=== PATIENT | male | born 1955 | race Caucasian/White ===

== ENCOUNTER 2016-12-21 07:20 | Day surgery (SDC) | payer BC ==
[~2016-12-21] VITALS: Ht 167.6 cm; Wt 86.6 kg
[~2016-12-21 07:20] MED LIST: ACYCLOVIR800 MG OR; ALEVE220 M1 PO; ALTOPREV40 MG OR; AMLODIPINE5 MG PO; ARAVA20 MG PO; ARTHRITIS MED PO; AUGMENTIN875 MG OR; AUGMENTIN875TAB PO; CALCIUM 601 PO; CALCIUM600 M3 PO; CETIRIZINE10 MG PO; FISH OIL1000 MG PO; FLEXERIL OR; KEFLEX500 M1 PO; LISINOP/HCTZ1 TAB PO; LORTAB 5 OR; LORTAB5 PO; MELOXICAM7.5 MG PO; NIACIN50 MG PO; NO MEDS; OMEGA 3550 MG PO; PRAVASTATIN SOD20 MG PO; PREDNISONE5 MG PO; PRILOSEC20 MG/CAP PO; PROSTATE SR PO; RHEUMATREX2.5 MG OR; STERAPRED5 MG OR; SULFASALAZIN500 M1 PO; VITAMIN B CO OR; VITAMIN7 PO
[2016-12-21 10:00] VITALS: BP 133/84
== END 2016-12-21 10:08 | disposition home or self-care (01) | DRG 382 ==
LOC: ENDO 07:20 → ORM 17:45
PROVIDERS: ATTEND Internal Medicine Gastroenterology
PROC: 0DB48ZX Excision of Esophagogastric Junction, Via Natural or Artificial Opening Endoscopic, Diagnostic (ICD-10-PCS; principal; 2016-12-21)
DX: K22.70 Barrett's esophagus without dysplasia (principal); I10 Essential (primary) hypertension; K21.9 Gastro-esophageal reflux disease without esophagitis; K29.70 Gastritis, unspecified, without bleeding; K44.9 Diaphragmatic hernia without obstruction or gangrene; K57.30 Diverticulosis of large intestine without perforation or abscess without bleeding; K64.8 Other hemorrhoids; M06.9 Rheumatoid arthritis, unspecified; E78.00 Pure hypercholesterolemia, unspecified; N40.0 Benign prostatic hyperplasia without lower urinary tract symptoms; Z87.11 Personal history of peptic ulcer disease

== ENCOUNTER 2017-02-07 10:21 | Inpatient (IN) | payer BC ==
[~2017-02-07] VITALS: Ht 167.6 cm; Wt 88.5 kg
[2017-02-07] MEDS ORDERED: HYDROCO/APAP1 T11 PO (10:51)
[2017-02-08] VITALS (7 sets, daily range): BP systolic 130–149; BP diastolic 68–89
[2017-02-09 03:48] VITALS: BP 154/80
[2017-02-09 06:50] LABS: HEMATOCRIT 40.4 % (39.0-50.0); HEMOGLOBIN 13.2 g/dl (14.0-18.0)
[2017-02-09 07:31] VITALS: BP 160/94
[2017-02-09 09:27] VITALS: BP 160/94
[2017-02-09] MEDS ORDERED: PERCOCET 10/31 COMBO PO (10:32)
== END 2017-02-09 12:14 | DRG 483 ==
LOC: ENPENDDIS → MS2 02-08 11:24
PROVIDERS: ADMIT Orthopaedic Surgery; ATTEND Internal Medicine
PROC: 0RRJ00Z Replacement of Right Shoulder Joint with Reverse Ball and Socket Synthetic Substitute, Open Approach (ICD-10-PCS; principal; 2017-02-08)
DX: M19.011 Primary osteoarthritis, right shoulder (principal); I10 Essential (primary) hypertension; M75.101 Unspecified rotator cuff tear or rupture of right shoulder, not specified as traumatic; E78.5 Hyperlipidemia, unspecified; N40.0 Benign prostatic hyperplasia without lower urinary tract symptoms; F17.290 Nicotine dependence, other tobacco product, uncomplicated
CPT/HCPCS: J2710

== ENCOUNTER 2018-01-19 13:44 | Emergency (ER) | payer BC ==
[~2018-01-19] VITALS: Ht 167.6 cm; Wt 87.2 kg
[~2018-01-19 13:44] MED LIST changes: +HYDROCO/APAP1 T11 PO; +PERCOCET 10/31 COMBO PO
[2018-01-19] MEDS ORDERED: RANITIDINE150 M1 PO (14:02)
[2018-01-19] MEDS ORDERED: CENTRUM ADULTS1 TAB PO (14:02)
[2018-01-19] MEDS ORDERED: MEDDOSEPAK PO (14:43)
[2018-01-19 14:50] VITALS: BP 127/81
== END 2018-01-19 14:50 | disposition home or self-care (01) | DRG 607 ==
LOC: ED 13:44
DX: R21 Rash and other nonspecific skin eruption (principal); I10 Essential (primary) hypertension; E78.5 Hyperlipidemia, unspecified; M06.9 Rheumatoid arthritis, unspecified; K21.9 Gastro-esophageal reflux disease without esophagitis; F17.220 Nicotine dependence, chewing tobacco, uncomplicated

== ENCOUNTER 2018-03-28 01:03 | Observation (INO) | payer BC ==
[2018-03-28] VITALS (7 sets, daily range): BP systolic 111–131; BP diastolic 54–75
[~2018-03-28] VITALS: Ht 167.6 cm; Wt 85.0 kg
[~2018-03-28 01:03] MED LIST changes: +CENTRUM ADULTS1 TAB PO; +MEDDOSEPAK PO; +RANITIDINE150 M1 PO
--- NOTE | 2018-03-28 01:18 | NUR ---
PT AMBULATED TO ROOM WITH
[2018-03-28 01:46] LABS: HEMATOCRIT 41.4 % (39.0-50.0); HEMOGLOBIN 13.8 g/dl (14.0-18.0); IMMATURE GRANULOCYTES 0.2 % (0.0-5.0); MEAN CORPUSCULAR HGB 27.7 pG CALC (26.0-32.0); MEAN CORPUSCULAR HGB CONC 33.3 g/L CALC (32.0-36.0); NEUT# 10.71 thou/uL (1.82-7.42); RED BLOOD COUNT 4.99 mill/uL (4.70-6.10); RED CELL DISTRI WIDTH 13.1 % (11.5-15.5)
[2018-03-28 01:59] LABS: ALBUMIN 4.3 g/dL (3.2-5.0); ALKALINE PHOSPHATASE 85 u/l (38-126); AMYLASE 60 u/l (30-110); ANION GAP 15 (6-22 (CALC)); BILIRUBIN, TOTAL 0.5 mg/dL (0.0-1.4); BUN 18 mg/dL (8-23); BUN/CREATININE RATIO 17 (12-20 (CALC)); CARBON DIOXIDE 26 mmol/l (22-30); CHLORIDE 104 mmol/l (95-108); CREATININE 1.1 mg/dL (0.7-1.3); GFR > 60 ML/MIN (>=60 (CALC)); GFR FOR AFR.AMER. > 60 ML/MIN (>=60 (CALC)); LIPASE 98 u/l (23-300); POTASSIUM 4.1 mmol/l (3.5-5.1); SGOT/AST 19 u/l (19-48); SGPT/ALT 41 u/l (11-66); SODIUM 142 mmol/l (137-146); TOTAL PROTEIN 6.7 g/dL (6.3-8.2)
--- NOTE | 2018-03-28 03:08 | NUR ---
urine obtained from pt. Last test waiting to run.
[2018-03-28 03:12] LABS: URINE BILIRUBIN - DIPSTICK NEGATIVE (NEGATIVE); URINE BLOOD DIPSTICK MODERATE (NEGATIVE); URINE COLOR YELLOW; URINE GLUCOSE - DIPSTICK NEGATIVE (NEGATIVE); URINE KETONE NEGATIVE (NEGATIVE); URINE LEUK ESTERASE NEGATIVE (NEGATIVE); URINE NITRITE - DIPSTICK NEGATIVE (Negative); URINE PROTEIN - DIPSTICK NEGATIVE (NEG-TRACE); URINE SPECIFIC GRAVITY 1.025; URINE UROBILINOGEN - DIPSTICK 0.2 E.U./dL (0.2)
[2018-03-28 03:14] LABS: URINE CLARITY CLEAR
[2018-03-28 03:21] LABS: URINE BACTERIA FEW hpf; URINE MUCUS MANY hpf (NONE-FEW); URINE SQUAMOUS EPITHELIAL CELL FEW EPI/hpf (0-FEW)
--- NOTE | 2018-03-28 03:23 | NUR ---
pt continues to sleep at this time. Spouse at bedside.
--- NOTE | 2018-03-28 03:37 | NUR ---
Asked pt about blood in urine, informed that he had a prostate biopsy last week.
--- NOTE | 2018-03-28 04:47 | NUR ---
pt continues to sleep, awaiting oral contrast to accumuilate for scan.
--- NOTE | 2018-03-28 05:55 | NUR ---
Pt returned from CT scan, awaiting results from radiologist.
--- NOTE | 2018-03-28 06:22 | NUR ---
CT scan results returned. Advised findings are consistent with appendicitis.
--- NOTE | 2018-03-28 06:34 | NUR ---
in to see pt & family member, advised of findings. Pt will be admitted for services of Dr. Hamilton.
--- NOTE | 2018-03-28 06:39 | NUR ---
[facility] PRINTED TO FLOOR
--- NOTE | 2018-03-28 06:45 | NUR ---
REPORT RECEIVED FOR TRANSPORT TO FLOOR ONLY.
--- NOTE | 2018-03-28 07:13 | NUR ---
PT CHANGED INTO GOWN AND INFORMED OF PENDING TRANSPORT TO ROOM. PT DENIES ANY PAIN OR NAUSEA AT THIS TIME. CALL WALKER WITHIN REACH.
--- NOTE | 2018-03-28 07:30 | NUR ---
Admission Note Report Given to: CAESAR WHARTON Transported by: X Wheelchair Stretcher Transported with: X Nurse Transporter X [employer] Tech PT TO ROOM 262 IN STABLE CONDITION. CARE RELINQUISHED TO CAESAR WHARTON.
--- NOTE | 2018-03-28 07:38 | NUR ---
PT ARRIVED FROM ER VIA WC ACCOMPANIED BY STAFF. IV SITE IS FREE FROM REDNESS OR EDEMA. PT AMBULATED IN THE BATHROOM.
[2018-03-28 08:01] LABS: INTERNATIONAL NORMALIZED RATIO 0.9 RATIO (0.7-1.3); PROTHROMBIN TIME 10.4 SECONDS (9.0-12.5)
--- NOTE | 2018-03-28 08:28 | NUR ---
ASSESSMENT IS COMPLETED: MINIMAL PAIN VOICED ON ABD. IV SITE IS FREE FROM REDNESS OR EDEMA. HR IS REG, PULSES ARE STRONG X4, ABD IS SOFT WITH ACTIVE BS, CONTINUE TO OBSERVE AND MONITOR.
--- NOTE | 2018-03-28 08:55 | NUR ---
PT TRANSPORTED TO OR VIA STRETCHER ACCOMPANIED BYS TAFF, IV SITE IS FREE FROM REDNESS OR EDEMA.
--- NOTE | 2018-03-28 11:30 | NUR ---
PT RETURNED FROM OR VIA STRETCHER ACCOMPANIUED BY STAFF. IV SITE IS FREE FROM REDNESS OR EDEMA. DRESSING IS CDI.
--- NOTE | 2018-03-28 14:50 | NUR ---
AMBULATED OFF THE UNIT WITH SPOUSE FOR DISCHARGE. ALL INSTRUCTIONS GIVEN AND VERBALIZED UNDERSTANDING.
--- NOTE | 2018-03-28 15:00 | NUR ---
Discharge instructions given. Patient verbalizes understanding of same. Discharged in stable condition via Ambulatory to Home with family. All belongings sent with pt.
== END 2018-03-28 14:52 | disposition home or self-care (01) | DRG 340 ==
LOC: ED 01:03 → ED-I 06:00 → ED 06:54 → MS2 06:55
PROVIDERS: Family Medicine; General Practice; ADMIT Internal Medicine; ATTEND Internal Medicine
PROC: 0DTJ4ZZ Resection of Appendix, Percutaneous Endoscopic Approach (ICD-10-PCS; principal; 2018-03-28)
DX: K35.3 Acute appendicitis with localized peritonitis (principal); F17.290 Nicotine dependence, other tobacco product, uncomplicated; I10 Essential (primary) hypertension; E78.5 Hyperlipidemia, unspecified; K21.9 Gastro-esophageal reflux disease without esophagitis; N40.0 Benign prostatic hyperplasia without lower urinary tract symptoms; M19.90 Unspecified osteoarthritis, unspecified site
CPT/HCPCS: G0378; J0461; J2710; Q9967

== ENCOUNTER 2018-07-12 10:26 | Emergency (ER) | payer BC ==
[~2018-07-12] VITALS: Ht 165.1 cm; Wt 82.0 kg
[2018-07-12] MEDS ORDERED: FINASTERIDE5 MG PO (10:39)
[2018-07-12] MEDS ORDERED: CEPHALEXIN500 M1 PO (11:43)
[2018-07-12] MEDS ORDERED: CIPROFLOXACN500 MG PO (11:43)
[2018-07-12] MEDS ORDERED: LORTAB 1010 MG PO (11:43)
[2018-07-12 11:50] VITALS: BP 147/97
== END 2018-07-12 11:57 | disposition home or self-care (01) | DRG 603 ==
LOC: ED 10:26
PROC: 0H9LXZZ Drainage of Left Lower Leg Skin, External Approach (ICD-10-PCS; principal; 2018-07-12)
DX: L02.416 Cutaneous abscess of left lower limb (principal); B95.62 Methicillin resistant Staphylococcus aureus infection as the cause of diseases classified elsewhere; I10 Essential (primary) hypertension; M06.9 Rheumatoid arthritis, unspecified; E78.5 Hyperlipidemia, unspecified; K21.9 Gastro-esophageal reflux disease without esophagitis; K27.9 Peptic ulcer, site unspecified, unspecified as acute or chronic, without hemorrhage or perforation; F17.290 Nicotine dependence, other tobacco product, uncomplicated

== ENCOUNTER 2018-07-13 11:19 | Emergency (ER) | payer BC ==
[~2018-07-13] VITALS: Ht 165.1 cm; Wt 81.0 kg
[~2018-07-13 11:19] MED LIST changes: +CEPHALEXIN500 M1 PO; +CIPROFLOXACN500 MG PO; +FINASTERIDE5 MG PO; +LORTAB 1010 MG PO
[2018-07-13 12:01] VITALS: BP 152/77
== END 2018-07-13 12:05 | disposition home or self-care (01) | DRG 951 ==
LOC: ED 11:19
DX: Z48.01 Encounter for change or removal of surgical wound dressing (principal); F17.210 Nicotine dependence, cigarettes, uncomplicated; M06.9 Rheumatoid arthritis, unspecified; I10 Essential (primary) hypertension; E78.5 Hyperlipidemia, unspecified

== ENCOUNTER 2019-01-25 08:57 | Emergency (ER) | payer BC ==
[~2019-01-25] VITALS: Ht 165.1 cm; Wt 80.0 kg
[2019-01-25] MEDS ORDERED: CYCLOBENZAPR5 MG PO (09:26)
[2019-01-25] MEDS ORDERED: VOLTAREN1%GEL TOP (09:26)
[2019-01-25] MEDS ORDERED: MOTRIN400 MG PO (09:26)
[2019-01-25] MEDS ORDERED: OMEPRAZOLE10 MG PO (09:29)
[2019-01-25 09:50] VITALS: BP 110/70
== END 2019-01-25 09:50 | disposition home or self-care (01) | DRG 563 ==
LOC: ED 08:57
DX: S29.012A Strain of muscle and tendon of back wall of thorax, initial encounter (principal); M54.6 Pain in thoracic spine

== ENCOUNTER 2022-12-03 06:34 | Day surgery (SDC) | payer MEDICARE ==
[~2022-12-03] VITALS: Ht 165.1 cm; Wt 86.1 kg
[~2022-12-03 06:34] MED LIST changes: +ALLERGY RELF10 M3 PO; +CYCLOBENZAPR5 MG PO; +HYDROXYCHLOR200 M1 PO; +LOSARTAN/HCT1 TA1 PO; +MOTRIN400 MG PO; +OMEPRAZOLE10 MG PO; +TAMSULOSIN HCL0.4 MG PO; +VOLTAREN1%GEL TOP; +[UNRECOGNIZED DRUG - OTHER] PO
[2022-12-03 07:59] VITALS: BP 119/72
== END 2022-12-03 08:26 | disposition home or self-care (01) ==
LOC: ENDO 06:34 → ORM 07:30 → ENDO 08:26 → ORM 12:20
PROVIDERS: ATTEND Internal Medicine Gastroenterology
PROC: 0DB98ZX Excision of Duodenum, Via Natural or Artificial Opening Endoscopic, Diagnostic (ICD-10-PCS; principal; 2022-12-03)
PROC: 0DB78ZX Excision of Stomach, Pylorus, Via Natural or Artificial Opening Endoscopic, Diagnostic (ICD-10-PCS; 2022-12-03)
PROC: 0DB48ZX Excision of Esophagogastric Junction, Via Natural or Artificial Opening Endoscopic, Diagnostic (ICD-10-PCS; 2022-12-03)
DX: D64.9 Anemia, unspecified (principal); K29.50 Unspecified chronic gastritis without bleeding; B96.81 Helicobacter pylori [H. pylori] as the cause of diseases classified elsewhere

== ENCOUNTER 2023-09-23 07:24 | Day surgery (SDC) | payer MEDICARE ==
[~2023-09-23] VITALS: Ht 165.1 cm; Wt 83.9 kg
[~2023-09-23 07:24] MED LIST changes: +BAYER ASPIRIN E81 MG PO; +CODEINE/GUAIFEN1 SOL PO; +FERROUS SULFAT325 MG PO; +FOLIC ACID1 MG PO; +MELOXICAM15 MG PO; +METHOTREXATE2.5 MG PO; +OMEGA XL PO; +TOTAL BEETS PO; +ZINC50 M1 PO; +[UNRECOGNIZED DRUG - OTHER] PO
[2023-09-23 09:52] VITALS: BP 129/70
== END 2023-09-23 10:12 | disposition home or self-care (01) ==
LOC: ORM 07:24
PROVIDERS: ATTEND Internal Medicine Gastroenterology
PROC: 0DJD8ZZ Inspection of Lower Intestinal Tract, Via Natural or Artificial Opening Endoscopic (ICD-10-PCS; principal; 2023-09-23)
DX: D50.9 Iron deficiency anemia, unspecified (principal); K57.30 Diverticulosis of large intestine without perforation or abscess without bleeding; K64.8 Other hemorrhoids